=== PATIENT | female | born 1980 | race Caucasian/White ===

== ENCOUNTER 2020-04-18 06:00 | Day surgery (SDC) | payer OTHER ==
[~2020-04-18 06:00] MED LIST: ALLEGRA-D1 TAB.SR1 PO; HYDROCHLOROTHIA25 MG PO; KETO10TA2 PO; TENORMIN25 MG PO
== END 2020-04-18 12:35 | disposition home or self-care (01) ==
LOC: CIR.AMB 06:00 → ADM 12:45
PROVIDERS: ATTEND Surgery
DX: L72.0 Epidermal cyst (principal)

== ENCOUNTER → 2021-07-13 06:56 | Outpatient (CLI) | payer OTHER | END | disposition home or self-care (01) | LOC: LAB 06:56 | PROVIDERS: ATTEND Specialist | DX: D50.8 Other iron deficiency anemias (principal); E83.51 Hypocalcemia; E03.8 Other specified hypothyroidism; N39.0 Urinary tract infection, site not specified; E78.49 Other hyperlipidemia; E11.9 Type 2 diabetes mellitus without complications ==

== ENCOUNTER 2021-07-13 07:53 | Outpatient (CLI) | payer OTHER | END 2021-07-13 07:55 | disposition home or self-care (01) | LOC: SONOGRAMA 07:53 | PROVIDERS: ATTEND Specialist | DX: R10.2 Pelvic and perineal pain (principal); N92.0 Excessive and frequent menstruation with regular cycle ==